=== PATIENT | male | born 1955 | race Caucasian/White ===

== ENCOUNTER 2016-08-05 14:19 | Emergency (ER) | payer OTHER ==
--- NOTE | ~2016-08-05 | EKG ---
PATIENT: SAJI SMART UNIT #: [id number] Ventricular Rate: 73 BPM Atrial Rate: 73 BPM P-R Interval: 172 ms QRS Duration: 116 ms Q-T Interval: 402 ms QTC Calculation(Bezet): 442 ms P Saco: 50 degrees Calculated R Saco: 48 degrees Calculated T Saco: 46 degrees Diagnosis Line: Normal sinus rhythm Diagnosis Line: Normal ECG Diagnosis Line: When compared with ECG of 20-MAY-2011 09:29, Diagnosis Line: No significant change was found Diagnosis Line: Confirmed by BEN MATHEW MD ([id number]) on 08/06/2016 Diagnosis Line: 10:01:59 AM INTERPRETING MD: QUINCY PASCAL
[2016-08-05 14:59] LABS: BASOPHIL# 0.1 X10e3 (0-0.3); BASOPHIL% 1.2 % (0-2.5); EOSINOPHIL% 0.4 % (0.0-7.0); HEMOGLOBIN 14.9 gm/dL (13.0-16.0); LYMPHOCYTE# 2.7 X10e3 (1.0-3.5); LYMPHOCYTE% 36.7 % (17.0-45.0); MEAN CELL VOLUME 89.4 FL (83-96); MEAN CORPUSCULAR HEMOGLOBIN 30.3 PG (28-34); MEAN CORPUSCULAR HGB CONC 33.9 g/dL (30-36); MEAN PLATELET VOLUME 7.1 FL (6.5-11.5); MONOCYTE# 0.7 X10e3 (0-1.0); NEUTROPHIL# 3.9 X10e3 (1.5-7.1); NEUTROPHIL% 52.7 % (40-75); PLATELET COUNT 257 X10e3 (140-420); RED BLOOD COUNT 4.92 X10e (3.90-5.60); RED CELL DISTRIBUTION WIDTH 13.1 % (11.0-15.5); WHITE BLOOD COUNT 7.4 X10e3 (4.0-10.5)
[2016-08-05 15:02] LABS: DIFF IND NO
[2016-08-05 15:29] LABS: ALBUMIN SERUM 3.9 g/dL (3.5-5.0); ALKALINE PHOSPHATASE 67 U/L (32-92); ALT (SGPT) 37 U/L (10-40); AST (SGOT) 29 U/L (10-42); BILIRUBIN, DIRECT 0.1 mg/dL (0.0-0.2); BILIRUBIN,INDIRECT 0.3 mg/dL (0.0-0.9); BILIRUBIN,TOTAL 0.4 mg/dL (0.2-2.0); BLOOD UREA NITROGEN 18 mg/dL (9-23); BUN/CREATININE RATIO 16.36; CALCIUM SERUM 8.9 mg/dL (8.4-10.2); CARBON DIOXIDE 20 mmol/L (22-31); CHLORIDE 108 mmol/L (100-111); CREATININE SERUM 1.1 mg/dL (0.6-1.4); GLOM FILT RATE Estimated 73.1 mL/min (>60); GLUCOSE FASTING 153 mg/dL (70-110); POTASSIUM 3.7 mmol/L (3.5-5.1); PROTEIN TOTAL SERUM 6.6 g/dL (6.0-8.3); SALICYLATE <4.0 mg/dL; SODIUM 141 mmol/L (135-145)
[2016-08-05 15:30] LABS: ACETAMINOPHEN <10 ug/mL
[2016-08-05 15:32] LABS: ALCOHOL BLOOD 323 mg/dL (0)
[2016-08-05 16:28] LABS: AMPHETAMINE NEG (NEG); BARBITURATES NEG (NEG); BENZODIAZEPINES NEG (NEG); COCAINE NEG (NEG); MARIJUANA NEG (NEG); OPIATES NEG (NEG); TRICYCLIC ANTIDEPRESSANTS NEG (NEG); U METHADONE NEG (NEG)
== END 2016-08-05 20:05 | disposition home or self-care (01) ==
LOC: CED 14:19
PROVIDERS: Emergency Medicine
DX: F10.129 Alcohol abuse with intoxication, unspecified (principal); I10 Essential (primary) hypertension
CPT/HCPCS: 36415; 80048; 80076; 80307; 85025; 93005; 96365; 99284; G0480; J3411; J3475

== ENCOUNTER 2016-08-05 18:00 | Inpatient (IN) | payer OTHER ==
--- NOTE | ~2016-08-05 | PN ---
Unit #: [id number] #: [id number] Patient: SAJI OROSCO [id number] [facility] [address] [place] [address] [id number] I MR#: [id number] NAME: SAJI OROSCO ROOM: P207 Age: 60 Sex: M Admission Date: 08/06/2016 : 1955 Attending Physician: Ute Gonzalez M.D. Admitting Physician: Ute Gonzalez M.D. Primary Care Physician: [facility] PROGRESS NOTES DATE OF SERVICE: 08/08/2016 SUBJECTIVE Mr. Orosco is a 60-year-old white male with alcohol dependence, who was seen today and chart was reviewed, and case was discussed with the staff who reports the patient's mood was anxious and shows very poor insight into his situation and has been constantly pushing to leave and blood pressure has been running high and he has been making excuses with that as well; however, he has not shown any agitation or aggression. MENTAL STATUS EXAMINATION Middle-aged white male who was casually dressed with fair personal hygiene, appears to be in no acute distress or discomfort. He was awake and alert with impaired attention and concentration. His mood was anxious with a congruent affect. He denies any suicidal or homicidal ideations. His insight and judgment remain slightly impaired. TREATMENT PLAN We will continue him on his current medications and treatment protocol. We will monitor his response and make further adjustments as needed. Dictated by... Dev Buckley/jonny TD: 08/08/2016 19:52 JOB #: [id number] [facility] PROGRESS NOTES Page 1 of 1 X Ute Gonzalez MD PROGRESS NOTE
--- NOTE | ~2016-08-05 | PN ---
Unit #: [id number] #: [id number] Patient: SAJI OROSCO [id number] [facility] [address] [place] [address] [id number] I MR#: [id number] NAME: SAJI OROSCO ROOM: P207 Age: 60 Sex: M Admission Date: 08/06/2016 : 1955 Attending Physician: Ute Gonzalez M.D. Admitting Physician: Ute Gonzalez M.D. Primary Care Physician: [facility] PROGRESS NOTES DATE 08/07/2016 DISCUSSION Mr. Orosco is a 60-year-old, white male who was seen today and chart was reviewed and case was discussed with the staff. He was seen to be anxious, restless, pacing the hallway getting somewhat anxious and wanting to leave and has been detoxing. Meanwhile, no agitation or aggression has been noted. MENTAL STATUS EXAM Middle-aged white male who was casually dressed with fair personal hygiene, appears to be in no acute distress or discomfort. He was awake and alert with intact orientation. His mood was anxious with congruent affect. He denies any suicidal or homicidal ideation. Also, denies any auditory or visual hallucinations. His insight and judgement remains slightly impaired. TREATMENT PLAN 1. We will continue him on his current medications and treatment protocol. We will monitor his response to the medication and make further adjustments as needed. 2. We will continue to follow up. Dictated by... Dev Buckley/landon TD: 08/09/2016 22:20 JOB #: [id number] Unit #: [id number] #: [id number] Patient: SAJI OROSCO PROGRESS NOTES Page 1 of 1 X Ute Gonzalez MD PROGRESS NOTE
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
--- NOTE | ~2016-08-05 | PA ---
Unit #: [id number] #: [id number] Patient: SAJI OROSCO [id number] [facility] [address] [place] [address] [id number] I MR#: [id number] NAME: SAJI OROSCO ROOM: P207 Age: 60 Sex: M Admission Date: 08/06/2016 : 1955 Date of Assessment: Attending Physician: Uet Gonzalez M.D. Admitting Physician: Ute Gonzalez M.D. Primary Care Physician: [facility] PSYCHIATRIC ASSESSMENT DATE OF SERVICE 08/06/2016. IDENTIFYING DATA Mr. Orosco is a 60-year-old single white male, who is a resident of [place], [place], and was brought to the hospital accompanied by one of his friend as a transfer from [facility]. CHIEF COMPLAINT "I have a long history of drinking whiskey." HISTORY OF PRESENT ILLNESS Mr. Orosco is a 60-year-old white male, who was initially taken to [facility] with a blood alcohol level of 323 and was acutely intoxicated and stated that he has a long history of drinking whisky and has been drinking 1 to 1-1/2 pints of whiskey daily for the last 3 months, and reports that he goes to work daily, but he is having some trouble functioning due to his heavy drinking, and this past week, he drank so much that his blood pressure myron and he blacked out and stated that he became scared and asked his friend to take him to the emergency room. He stated that he desired to stop drinking and is seeking treatment at this time. He reports that he is a local bulk driver at [employer] where they are aware of his alcohol use and they also want him to get the help that he needs and stated that his job may be in jeopardy as he has not been to work all week due to his constant drinking. He does report depression, anxiety, irritability, restlessness, and feelings of hopelessness, but denies any suicidal ideations, intent, or plan. SUBSTANCE ABUSE HISTORY The patient reports a long history of alcohol dependence stating that he has been drinking since he was 13 years old, though currently he has been drinking 1 to 1-1/2 pints of whiskey a day and denies any other drug abuse. PAST PSYCHIATRIC HISTORY The patient has had a history of chemical dependency treatment while in long-term, but currently he is not active in any treatment program. Review of the medical records indicate that currently he is not active in any treatment program, is not seeing a psychiatrist, and is not taking any psychotropic medications. PAST MEDICAL HISTORY Significant for hypertension. Unit #: [id number] #: [id number] Patient: SAJI OROSCO ALLERGIES No known medication allergies. PERSONAL AND SOCIAL HISTORY A 60-year-old white male, who reports that he is single, employed, and lives with his friend and has poor social support system. MENTAL STATUS EXAMINATION Middle-aged white male, who was casually dressed with fair personal hygiene, appears to be in no acute distress or discomfort. He was awake and alert on interaction with intact orientation to time, place, and person. His mood was anxious and depressed with a congruent affect. His speech was slow and restricted in content. His thought processes were disorganized with some looseness of associations. He denies any suicidal or homicidal ideations and also denies any auditory or visual hallucinations. His insight and judgment remain significantly impaired. DIAGNOSTIC IMPRESSION Psychiatric: Alcohol dependence, moderate, in acute withdrawals and alcohol-induced mood disorder. Medical: Hypertension. Stressors: Moderate psychosocial stressors. TREATMENT PLAN 1. The patient has presented with a history of alcohol dependence and mood disorder, who has been decompensating and will need inpatient hospitalization for detoxification. We will start him on alcohol detox protocol. We will closely monitor for any worsening withdrawal symptoms. 2. Supportive therapy was provided to the patient. 3. Safe, structured, and nourishing environment will be provided. ESTIMATED LENGTH OF STAY 4 to 5 days. ABILITY TO HELP SELF Limited. WILLINGNESS TO HELP SELF The patient appears to be willing to help self. STRENGTHS 1. Communicative. 2. Cooperative. PROBLEMS 1. Chronic dysphoric symptoms. 2. Chronic chemical dependency. 3. Poor social support system. DISCHARGE CRITERIA This will be contingent upon the patient's ability to go through detox without having any significant withdrawal symptoms as well as his ability to stay safe to himself, particularly after discharge from the hospital. Dictated by... Ute Gonzalez M.D. Unit #: [id number] #: [id number] Patient: BANJO REPAIRERSAJI TD: 08/07/2016 14:48 JOB #: [id number] PSYCHIATRIC ASSESSMENT Page 1 of 1 X Ute Gonzalez MD PSYCHIATRIC ASSESSMENT
--- NOTE | ~2016-08-05 | CO ---
Unit #: [id number] #: [id number] Patient: SAJI SMART [id number] [facility] [address] [place] [address] [id number] I MR#: [id number] NAME: SAJI SMART ROOM: [facility] Age: 60 Sex: M Admission Date: 08/06/2016 : 1955 Attending Physician: Ute Gonzalez M.D. Primary Care Physician: [facility] Requesting Physician: Ute Gonzalez M.D. Consultation Date: 08/06/2016 CONSULTATION REPORT HISTORY OF PRESENT ILLNESS Saji has a history of shortness of air for the past month. He is not having any chest pain or coughing. Occasionally, he has shortness of air on exertion and occasionally (1) __ relaxing, sitting down. It occurs a few times a week and last for a couple of minutes each time. He has a history of cigarette use, smoking 2 packs a day for 30 to 40 years. He quit more than 5 years ago. (2) __ chest x-ray. No other complaints. PHYSICAL EXAMINATION CARDIAC: Regular rate and rhythm. No murmur, gallop, or rub. RESPIRATORY: Clear to auscultation bilaterally. ASSESSMENT AND PLAN Shortness of air. We will obtain a chest x-ray and begin Pro-Air q. 4 hours, 2 puffs p.r.n. for shortness of breath. The patient was instructed to follow up with primary care provider. Dictated by... Tae Mao TD: 08/13/2016 10:49 JOB #: [id number] CONSULTATION REPORT Page 1 of 1 X LITA SUAREZ APRN CONSULTATION REPORT
--- NOTE | ~2016-08-05 | CR63 ---
[facility] A Service of [facility] RADIOLOGY TEXT RESULTS PATIENT: SAJI SMART LOCATION: P2S P207-1 : [birth year] UNIT #: [id number] AGE: [address]: Ute Gonzalez MD SEX: M ORDER DR: [id number] [facility] [place], [place] [address] [id number] I MR#: [id number] Acc #: [id number] NAME: SAJI SMART : 1955 SEX: M STUDY DATE/TIME: 08/07/2016 17:29 UNIT: S ROOM: [facility] STUDY DESCRIPTION: CR Chest 2 View Attending Physician: Ute Gonzalez M.D. Ordering Physician: Ute Gonzalez M.D. Primary Care Physician: [facility], [facility]. MEDICAL IMAGING REPORT This report is preliminary unless electronic signature is present EXAM PA and lateral chest INDICATIONS No shortness of breath, wheezing and pain for 3 weeks. No comparisons. FINDINGS There are calcified hilar lymph nodes. There is no acute-appearing infiltrate. Heart size normal. Degenerative changes thoracic spine. IMPRESSION No active disease Dictated by... Armando Rosario M.D. THIS IS AN ELECTRONICALLY VERIFIED REPORT Armando Rosario M.D. at 08/08/2016 8:36 AM JOEL/alan TD: 08/07/2016 23:21 JOB #: [id number] MEDICAL IMAGING REPORT Page 1 of 1 COPY
--- NOTE | ~2016-08-05 | DS ---
Unit #: [id number] #: [id number] Patient: SAJI OROSCO [id number] [facility] [address] [place] [address] [id number] I MR#: [id number] NAME: SAJI OROSCO ROOM: P207 Age: 60 Sex: M Admission Date: 08/06/2016 : 1955 Discharge Date: 08/09/2016 Attending Physician: Ute Gonzalez M.D. Primary Care Physician: [facility] DISCHARGE SUMMARY IDENTIFYING DATA Mr. Orosco is a 60-year-old single white male, who is a resident of [place], [place] and was brought to the hospital accompanied by one of his friend as a transfer from [facility]. DISCHARGE DIAGNOSES Psychiatric: Alcohol dependence, moderate and acute withdrawal; alcohol-induced mood disorder. Medical: Hypertension. Stressors: Moderate psychosocial stressors. HISTORY OF PRESENT ILLNESS Please see initial psychiatric evaluation for details. PAST PSYCHIATRIC HISTORY Please see initial psychiatric evaluation for details. PAST MEDICAL HISTORY Please see initial psychiatric evaluation for details. HOSPITAL COURSE The patient [facility] and was oriented to the hospital environment. Routine p.r.n. medications were initiated and he was started on the alcohol detox protocol. However, his blood pressure was running high, but he was trying to minimize his symptoms and was not interested in treatment, was constantly wanting to leave and asking to leave and pressuring and getting agitated about it and even the recommendations to stay here indicating that his blood pressure is high, he stated that he has history of blood pressure being high and that he is already on those medications before and that he is not going to take any more medication. He has to get out of here and was denying any suicidal ideations, intent, or plan and was not meeting criteria for involuntary psychiatric hospitalization and as such, it was decided he will be discharged home and will continue treatment on an outpatient basis. DISCHARGE MEDICATIONS Norvasc 5 mg a day for hypertension, Lopressor 50 mg b.i.d. for hypertension, and Claritin 10 mg at bedtime for allergies. DISCHARGE CONDITION Stable. PROGNOSIS Unit #: [id number] #: [id number] Patient: SAJI OROSCO Fair. Dictated by... IrfDev Archuleta/jonny TD: 08/09/2016 09:40 JOB #: [id number] DISCHARGE SUMMARY Page 1 of 1 X Ute Gonzalez MD X DISCHARGE SUMMARY
== END 2016-08-09 10:15 | disposition home or self-care (01) | DRG 897 ==
LOC: P2S 08-06 12:50
PROC: HZ2ZZZZ Detoxification Services for Substance Abuse Treatment (ICD-10-PCS; principal; 2016-08-06)
DX: F10.239 Alcohol dependence with withdrawal, unspecified (principal); F10.24 Alcohol dependence with alcohol-induced mood disorder; I10 Essential (primary) hypertension; F39 Unspecified mood [affective] disorder
CPT/HCPCS: 71020; 86592

== ENCOUNTER 2016-10-24 21:17 | Emergency (ER) | payer SELFPAY ==
[~2016-10-24] VITALS: Ht 180.3 cm; Wt 88.5 kg
--- NOTE | ~2016-10-24 | EKG ---
PATIENT: SAJI SMART UNIT #: [id number] Ventricular Rate: 117 BPM Atrial Rate: 117 BPM P-R Interval: 158 ms QRS Duration: 96 ms Q-T Interval: 338 ms QTC Calculation(Bezet): 471 ms P [place]alba: 38 degrees Calculated R [place]: 10 degrees Calculated T [place]: 57 degrees Diagnosis Line: Sinus tachycardia Diagnosis Line: Otherwise normal ECG Diagnosis Line: Diagnosis Line: Confirmed by TAHIRA SANCHEZ MD ([id number]) on Diagnosis Line: 10/26/2016 8:56:13 AM INTERPRETING MD: LAURA PASCAL
[2016-10-24 22:27] LABS: BASOPHIL% 0.6 % (0-2.5); EOSINOPHIL# 0.1 X10e3 (0-0.7); EOSINOPHIL% 1.3 % (0.0-7.0); HEMATOCRIT 46.4 % (38.0-50.0); HEMOGLOBIN 15.6 gm/dL (13.0-16.0); LYMPHOCYTE# 1.7 X10e3 (1.0-3.5); LYMPHOCYTE% 32.1 % (17.0-45.0); MEAN CELL VOLUME 92.1 FL (83-96); MEAN CORPUSCULAR HEMOGLOBIN 30.9 PG (28-34); MEAN CORPUSCULAR HGB CONC 33.6 g/dL (30-36); MEAN PLATELET VOLUME 6.9 FL (6.5-11.5); MONOCYTE# 0.4 X10e3 (0-1.0); MONOCYTE% 7.9 % (3.0-12.0); NEUTROPHIL# 3.1 X10e3 (1.5-7.1); NEUTROPHIL% 58.1 % (40-75); PLATELET COUNT 202 X10e3 (140-420); RED BLOOD COUNT 5.04 X10e (3.90-5.60); WHITE BLOOD COUNT 5.4 X10e3 (4.0-10.5)
[2016-10-24 22:31] LABS: DIFF IND NO
[2016-10-24 23:04] LABS: ALBUMIN SERUM 4.3 g/dL (3.5-5.0); BILIRUBIN, DIRECT 0.2 mg/dL (0.0-0.2); BILIRUBIN,INDIRECT 0.6 mg/dL (0.0-0.9); BILIRUBIN,TOTAL 0.8 mg/dL (0.2-2.0); CALCIUM SERUM 8.4 mg/dL (8.4-10.2); GLOM FILT RATE Estimated 81.5 mL/min (>60); POTASSIUM 3.6 mmol/L (3.5-5.1); PROTEIN TOTAL SERUM 7.6 g/dL (6.0-8.3)
== END 2016-10-25 00:36 | disposition home or self-care (01) ==
LOC: CED 21:17
PROVIDERS: Student in an Organized Health Care Education/Training Program
DX: F10.129 Alcohol abuse with intoxication, unspecified (principal); I10 Essential (primary) hypertension; F17.200 Nicotine dependence, unspecified, uncomplicated
CPT/HCPCS: 36415; 80048; 80076; 85025; 93005; 96361; 96374; 96375; 99284; C9113; G0480; J2405; J3411; J3475; J3490

== ENCOUNTER 2016-11-16 01:14 | Inpatient (IN) | payer OTHER ==
--- NOTE | ~2016-11-16 | EKG ---
PATIENT: SAJI SMART UNIT #: [id number] Ventricular Rate: 66 BPM Atrial Rate: 66 BPM P-R Interval: 162 ms QRS Duration: 94 ms Q-T Interval: 458 ms QTC Calculation(Bezet): 480 ms P Combs: 32 degrees Calculated R Combs: 2 degrees Calculated T Combs: 70 degrees Diagnosis Line: Normal sinus rhythm Diagnosis Line: Possible Inferior infarct , age undetermined Diagnosis Line: Abnormal ECG Diagnosis Line: When compared with ECG of 16-NOV-2016 04:24, Diagnosis Line: (unconfirmed) Diagnosis Line: Borderline criteria for Inferior infarct are now Diagnosis Line: Present Diagnosis Line: ST no longer elevated in Inferior leads Diagnosis Line: Confirmed by LYNN GUNDERSON MD ([id number]) on 11/16/2016 Diagnosis Line: 10:14:36 PM INTERPRETING MD: JALYN PASCAL
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
--- NOTE | ~2016-11-16 | CR72 ---
[facility] A Service of [facility] & [facility] RADIOLOGY TEXT RESULTS PATIENT: SAJI SMART LOCATION: [facility] [id number] : 56 UNIT #: [id number] AGE: [address]: Lior Fleming MD SEX: M ORDER DR: [id number] [facility] [address]. [place], [place] [address] [id number] I MR#: [id number] Acc #: [id number] NAME: SAJI SMART : 1955 SEX: M STUDY DATE/TIME: 11/16/2016 1:55 UNIT: [facility] ROOM: [facility] STUDY DESCRIPTION: CR Chest Single View Portable Attending Physician: Vineet Fleming M.D. Ordering Physician: Armin Yu M.D. Primary Care Physician: [facility] MEDICAL IMAGING REPORT This report is preliminary unless electronic signature is present EXAM Chest x-ray 11/16/2016 HISTORY 61-year-old male in the ED complaining of mid chest pain, present upon awakening tonight. TECHNIQUE AP portable chest x-ray. FINDINGS The examination is negative. Heart size and pulmonary vascularity are normal. The lungs are expanded and clear. No visible pulmonary infiltrate. IMPRESSION Negative chest. Dictated by... Rahat Rodriguez M.D. THIS IS AN ELECTRONICALLY VERIFIED REPORT Rahat Rodriguez M.D. at 11/16/2016 8:56 PM RENÉE/jaden TD: 11/16/2016 08:43 JOB #: [id number] MEDICAL IMAGING REPORT Page 1 of 1 COPY
--- NOTE | ~2016-11-16 | EKG ---
PATIENT: SAJI SMART UNIT #: [id number] Ventricular Rate: 75 BPM Atrial Rate: 75 BPM P-R Interval: 170 ms QRS Duration: 92 ms Q-T Interval: 424 ms QTC Calculation(Bezet): 473 ms P [place]: 63 degrees Calculated R [place]: 54 degrees Calculated T [place]: 15 degrees Diagnosis Line: Sinus rhythm with Premature atrial complexes Diagnosis Line: Cannot rule out Inferior infarct (cited on or Diagnosis Line: before 16-NOV-2016) Diagnosis Line: Abnormal ECG Diagnosis Line: When compared with ECG of 16-NOV-2016 12:19, Diagnosis Line: Premature atrial complexes are now Present Diagnosis Line: Nonspecific T wave abnormality now evident in Diagnosis Line: Inferior leads Diagnosis Line: Confirmed by ASHLY CANTRELL MD ([id number]) on Diagnosis Line: 11/17/2016 12:18:11 PM INTERPRETING MD: ISIS
--- NOTE | ~2016-11-16 | EKG ---
PATIENT: SAJI SMART UNIT #: [id number] Ventricular Rate: 77 BPM Atrial Rate: 77 BPM P-R Interval: 168 ms QRS Duration: 96 ms Q-T Interval: 408 ms QTC Calculation(Bezet): 461 ms P [place]: 21 degrees Calculated R [place]: 14 degrees Calculated T [place]: 61 degrees Diagnosis Line: Normal sinus rhythm Diagnosis Line: Nonspecific ST elevation Diagnosis Line: Borderline ECG Diagnosis Line: When compared with ECG of 24-OCT-2016 21:46, Diagnosis Line: Vent. rate has decreased BY 40 BPM Diagnosis Line: Confirmed by LYNN GUNDERSON MD ([id number]) on 11/16/2016 Diagnosis Line: 10:07:46 PM INTERPRETING MD: JALYN PASCAL
--- NOTE | ~2016-11-16 | EKG ---
PATIENT: SAJI SMART UNIT #: [id number] Ventricular Rate: 55 BPM Atrial Rate: 55 BPM P-R Interval: 144 ms QRS Duration: 106 ms Q-T Interval: 472 ms QTC Calculation(Bezet): 451 ms P [place]: 14 degrees Calculated R [place]: 35 degrees Calculated T Steen: 70 degrees Diagnosis Line: Sinus bradycardia Diagnosis Line: Nonspecific ST abnormality Cannot rule out Diagnosis Line: Inferior infarct Diagnosis Line: Abnormal ECG Diagnosis Line: When compared with ECG of 16-NOV-2016 01:21, Diagnosis Line: (unconfirmed) Diagnosis Line: No significant change was found Diagnosis Line: Confirmed by LYNN GUNDERSON MD ([id number]) on 11/16/2016 Diagnosis Line: 10:08:47 PM INTERPRETING MD: JALYN PASCAL
--- NOTE | ~2016-11-16 | DS ---
Unit #: [id number] #: [id number] Patient: SAJI SMART [id number] [address] [place], [place] [address] [id number] I MR#: [id number] NAME: SAJI SMART ROOM: 555 Age: 61 Sex: M Admission Date: 11/16/2016 : 1955 Discharge Date: 11/18/2016 Attending Physician: Vineet Fleming M.D. Primary Care Physician: [facility]. DISCHARGE SUMMARY DISCHARGE DIAGNOSES 1. Acute inferior myocardial infarction, status post cardiac catheterization performed by Dr. Lau which revealed severe three-vessel coronary artery disease, left ventricular ejection fraction of 45%, status post percutaneous coronary intervention and stent to the mid RCA, status post percutaneous coronary intervention and stent to the first marginal branch of the circumflex. Patient also had 99% stenosis in the LAD distal to the second diagonal branch and 30-40% stenosis was also seen in the mid section of the LAD, but the distal section was normal. Dr. Lau will recommend if necessary at a later date intervention. 2. Chronic obstructive pulmonary disease with nicotine abuse. 3. Hypertension. 4. Hyperlipidemia. 5. (1) . DISCHARGE MEDICATIONS 1. Atorvastatin 80 mg p.o. daily at bedtime. 2. Metoprolol 50 mg p.o. twice daily. 3. Hydrochlorothiazide 25 mg 1 tablet daily. 4. Lisinopril 20 mg p.o. daily at bedtime. 5. Aspirin 81 mg daily. 6. Brilinta 90 mg p.o. twice daily. 7. Imdur-ER 30 mg p.o. daily. HOSPITAL COURSE This is a 61-year-old white male who presented to the emergency room after he was awakened with worsening substernal pressure radiating up to his shoulders. He got diaphoretic, short of breath, and very anxious and apprehensive. He had been having similar symptoms but not as severe that would ease off with rest over the past week. In the emergency room, patient's blood pressure was found to be 180/100 and his heart rate was 74. Patient's EKG did show some sinus bradycardia. He had some ST elevation of 1 mm in the inferior leads only. Other than that, he had a prolonged QT. Later after arrival, he did have a 6.6 second ventricular standstill that was before he went to the lab aide. Patient did have a dose of atropine. Patient had been started on a heparin drip in addition to aspirin, nitrate, and statin. Dr. Lau took the patient to the lab aide loss prevention consultant, and he was found to severe three-vessel coronary artery disease. As mentioned in the report, he performed PCI and stent to the mid RCA and the first marginal branch of the circumflex. He did find additional blockage in the mid LAD Unit #: [id number] #: [id number] Patient: SAJI SMART that was not dilated. He wants to treat him with aggressive medical management. Patient tolerated the procedure well, and he has been chest pain free since the procedure. His EKG stabilized and ST elevation resolved. His latest EKG today shows normal sinus rhythm. There are some nondiagnostic Q waves in the inferior leads and inferolateral leads. Patient will be discharged home on the appropriate cardiac medications. He has been initiated on an JOCELYNN inhibitor for his cardiomyopathy with EF of 45%. The patient has been ambulating in the allred without any chest pain, palpitations, or dizziness. Patient will be discharged home today in stable condition. PHYSICAL EXAMINATION AT TIME OF DISCHARGE VITAL SIGNS: Blood pressure is 149/72, heart rate 68, respirations 18, temperature 98.8, and O2 saturation is 100% on room air. HEART: S1 and S2, regular rate and rhythm. LUNGS: Diminished, otherwise clear. ABDOMEN: Soft and nontender. EXTREMITIES: Right wrist cardiac cath site is without oozing, hematoma, or thrill. Pedal pulses are palpable. No pedal edema. DIAGNOSTIC STUDIES LATEST LABORATORY: Glucose 105, BUN 14, creatinine 1.1, eGFR 72.6, sodium 139, potassium 5, chloride 104, CO2 is 26, and calcium is 9.5. Fasting lipid profile: Cholesterol is 175, triglycerides 136, LDL 122, and HDL 26. TSH is 2.64. Patient's troponin did peak at 4.78 on November 17. Latest CK total is 152, MB 6.5, and percentage of MB 4.3 and 4.3. WBC 6.9, hemoglobin 13.3, hematocrit 39.5, and platelets 241,000. CARDIOLOGY: EKG today shows normal sinus rhythm with occasional premature atrial complex and nondiagnostic Q waves. PLANS/INSTRUCTIONS 1. Patient will be discharged home today and instructed to follow up with Dr. Lau on January 01 at 2:45 p.m. 2. Patient has been instructed to follow up with his primary care physician. He goes to the [facility]. 3. Beatriz Almonte and [facility] have helped the patient fill his medications there at low cost. Patient was assisted by the marriage and family social worker and wound care technician to get on [employer] health insurance. I talked to Beatriz Almonte, pharmacist photovoltaic fabrication technician, and she assisted him getting his prescriptions filled down in [facility]. He got the Brilinta with zero cost. Also, most of his medications were zero cost. 4. Encourage the patient on compliance. 5. Smoking cessation information discussed with the patient and information provided. 6. Post-cardiac cath instructions provided to patient. 7. Dr. Lau will see the patient as mentioned in early December. But in the meantime, Dr. Lau said if he was stable, the patient could return back to work on December 11. A release note was provided to the patient. 8. Patient is on an JOCELYNN inhibitor for his cardiomyopathy. 9. Discussed with the patient the importance of continuing on his dual antiplatelet therapy and prevention of stent closure, rethrombosis, myocardial infarction, and even . Patient verbalized understanding. Discussed with patient risk factor modification, Unit #: [id number] #: [id number] Patient: SAJI SMART healthy-heart lifestyle changes, and diet for his hypertension and his coronary artery disease and hyperlipidemia. 1. Dictated by... Ian SantaPStuartRStuartNStuart for Dev Murry/aristides TD: 11/18/2016 16:11 JOB #: [id number] DISCHARGE SUMMARY Page 1 of 1 X Amna Navas APRN X DISCHARGE SUMMARY
[2016-11-16 01:59] LABS: BASOPHIL# 0.1 X10e3 (0-0.3); BASOPHIL% 1.1 % (0-2.5); EOSINOPHIL# 0.4 X10e3 (0-0.7); EOSINOPHIL% 5.5 % (0.0-7.0); HEMATOCRIT 43.8 % (38.0-50.0); HEMOGLOBIN 15.2 gm/dL (13.0-16.0); LYMPHOCYTE# 2.5 X10e3 (1.0-3.5); LYMPHOCYTE% 31.7 % (17.0-45.0); MEAN CORPUSCULAR HEMOGLOBIN 31.5 PG (28-34); MEAN CORPUSCULAR HGB CONC 34.6 g/dL (30-36); MEAN PLATELET VOLUME 8.4 FL (6.5-11.5); MONOCYTE# 0.6 X10e3 (0-1.0); MONOCYTE% 8.3 % (3.0-12.0); NEUTROPHIL# 4.1 X10e3 (1.5-7.1); NEUTROPHIL% 53.4 % (40-75); PLATELET COUNT 299 X10e3 (140-420); RED BLOOD COUNT 4.82 X10e (3.90-5.60); RED CELL DISTRIBUTION WIDTH 13.1 % (11.0-15.5); WHITE BLOOD COUNT 7.8 X10e3 (4.0-10.5)
[2016-11-16 02:02] LABS: POC - CKMB 18.4 ng/mL (0.0-7.9); POC - TROPONIN 0.87 ng/mL (<=0.05)
[2016-11-16 02:06] LABS: DIFF IND NO
[2016-11-16 02:21] LABS: ALBUMIN SERUM 3.8 g/dL (3.5-5.0); BILIRUBIN, DIRECT 0.1 mg/dL (0.0-0.2); BILIRUBIN,INDIRECT 0.3 mg/dL (0.0-0.9); BILIRUBIN,TOTAL 0.4 mg/dL (0.2-2.0); BUN/CREATININE RATIO 12.3; CALCIUM SERUM 9.2 mg/dL (8.4-10.2); CREATININE SERUM 1.3 mg/dL (0.6-1.4); GLOM FILT RATE Estimated 59.3 mL/min (>60); POTASSIUM 4.2 mmol/L (3.5-5.1); PROTEIN TOTAL SERUM 7.1 g/dL (6.0-8.3)
[2016-11-16 03:23] LABS: POC - CKMB 9.6 ng/mL (0.0-7.9); POC - TROPONIN 0.5 ng/mL (<=0.05)
[2016-11-16] MEDS ORDERED: LOPRESSOR PO (04:04)
[2016-11-16] MEDS ORDERED: TENORMIN25 M1 PO (04:05)
[2016-11-16 07:23] LABS: BASOPHIL# 0.1 X10e3 (0-0.3); EOSINOPHIL# 0.5 X10e3 (0-0.7); EOSINOPHIL% 7.4 % (0.0-7.0); HEMATOCRIT 41.3 % (38.0-50.0); HEMOGLOBIN 14.2 gm/dL (13.0-16.0); LYMPHOCYTE# 2.1 X10e3 (1.0-3.5); LYMPHOCYTE% 31.5 % (17.0-45.0); MEAN CELL VOLUME 90.8 FL (83-96); MEAN CORPUSCULAR HEMOGLOBIN 31.1 PG (28-34); MEAN CORPUSCULAR HGB CONC 34.3 g/dL (30-36); MEAN PLATELET VOLUME 8.3 FL (6.5-11.5); MONOCYTE# 0.5 X10e3 (0-1.0); NEUTROPHIL# 3.4 X10e3 (1.5-7.1); NEUTROPHIL% 52.1 % (40-75); PLATELET COUNT 288 X10e3 (140-420); RED BLOOD COUNT 4.55 X10e (3.90-5.60); WHITE BLOOD COUNT 6.6 X10e3 (4.0-10.5)
[2016-11-16 07:24] LABS: DIFF IND NO
[2016-11-16 07:38] LABS: PARTIAL THROMBOPLASTIN TIME 32.2 SECONDS (23.5-31.3)
[2016-11-16 07:57] LABS: BUN/CREATININE RATIO 11.66; CREATININE SERUM 1.2 mg/dL (0.6-1.4); GLOM FILT RATE Estimated 65.4 mL/min (>60); MAGNESIUM 2.2 mg/dL (1.6-3.0); POTASSIUM 4.3 mmol/L (3.5-5.1)
[2016-11-16 09:38] LABS: %MB 12.3 % (0.0-4.0); MB 69.6 ng/ml
[2016-11-16 10:10] LABS: CHOLESTEROL 203 mg/dL (0-200); HDL CHOLESTEROL 32 mg/dL (29-75); LDL/HDL RATIO 5 RATIO (0-4); TRIGLYCERIDES 58 mg/dL (10-160)
[2016-11-16 10:18] LABS: LDL CHOLESTEROL 159 mg/dL (-130)
[2016-11-16 12:22] LABS: %MB 14.7 % (0.0-4.0); MB 100.8 ng/ml
[2016-11-16 16:31] LABS: %MB 15.1 % (0.0-4.0); MB 100.6 ng/ml
[2016-11-16 20:02] LABS: ANGIO %MB 13.6 % (0.0-4.0); ANGIO MB 83.5 ng/ml
[2016-11-17 03:39] LABS: HEMATOCRIT 39.5 % (38.0-50.0); HEMOGLOBIN 13.3 gm/dL (13.0-16.0); MEAN CELL VOLUME 90.8 FL (83-96); MEAN CORPUSCULAR HEMOGLOBIN 30.6 PG (28-34); MEAN CORPUSCULAR HGB CONC 33.7 g/dL (30-36); MEAN PLATELET VOLUME 8.3 FL (6.5-11.5); RED BLOOD COUNT 4.35 X10e (3.90-5.60); RED CELL DISTRIBUTION WIDTH 13.3 % (11.0-15.5); WHITE BLOOD COUNT 6.9 X10e3 (4.0-10.5)
[2016-11-17 03:58] LABS: BUN/CREATININE RATIO 11.66; CALCIUM SERUM 8.5 mg/dL (8.4-10.2); CREATININE SERUM 1.2 mg/dL (0.6-1.4); GLOM FILT RATE Estimated 65.4 mL/min (>60)
[2016-11-17 04:17] LABS: ANGIO %MB 11.9 % (0.0-4.0); ANGIO MB 44.4 ng/ml
[2016-11-18] MEDS ORDERED: BRILINTA90 MG PO (10:34)
[2016-11-18] MEDS ORDERED: IMDUR-ER30 M1 PO (10:34)
[2016-11-18] MEDS ORDERED: CHEWABLE ASPIRI81 MG PO (10:37)
[2016-11-18] MEDS ORDERED: ZESTRIL30 MG PO (10:38)
[2016-11-18] MEDS ORDERED: HYDROCHLOROTHIA25 MG PO (10:39)
[2016-11-18] MEDS ORDERED: ATORVASTATIN CA80 MG PO (10:40)
[2016-11-18 11:38] LABS: BUN/CREATININE RATIO 12.72; CALCIUM SERUM 9.5 mg/dL (8.4-10.2); CREATININE SERUM 1.1 mg/dL (0.6-1.4); GLOM FILT RATE Estimated 72.6 mL/min (>60)
[2016-11-18 11:57] LABS: %MB 4.3 % (0.0-4.0); MB 6.5 ng/ml
== END 2016-11-18 18:12 | disposition home or self-care (01) | DRG 247 ==
LOC: CED 01:14 → CEDOF 02:37 → CED 02:48 → C5B 02:48 → CEDOF 02:48 → C5B 03:21
PROVIDERS: Emergency Medicine; Internal Medicine Cardiovascular Disease
PROC: 027135Z Dilation of Coronary Artery, Two Arteries with Two Drug-eluting Intraluminal Devices, Percutaneous Approach (ICD-10-PCS; principal; 2016-11-16)
PROC: 4A023N7 Measurement of Cardiac Sampling and Pressure, Left Heart, Percutaneous Approach (ICD-10-PCS; 2016-11-16)
PROC: B211YZZ Fluoroscopy of Multiple Coronary Arteries using Other Contrast (ICD-10-PCS; 2016-11-16)
PROC: B215YZZ Fluoroscopy of Left Heart using Other Contrast (ICD-10-PCS; 2016-11-16)
DX: I21.4 Non-ST elevation (NSTEMI) myocardial infarction (principal); I10 Essential (primary) hypertension; Z91.19 Patient's noncompliance with other medical treatment and regimen; F10.10 Alcohol abuse, uncomplicated; R00.1 Bradycardia, unspecified; Z87.891 Personal history of nicotine dependence; F17.220 Nicotine dependence, chewing tobacco, uncomplicated; J44.9 Chronic obstructive pulmonary disease, unspecified; E78.5 Hyperlipidemia, unspecified; I25.110 Atherosclerotic heart disease of native coronary artery with unstable angina pectoris
CPT/HCPCS: 36415; 71010; 80048; 80061; 80076; 82550; 82553; 82947; 83690; 83735; 84443; 84484; 85025; 85027; 85347; 85610; 85730; 93005; 99152; 99153; 99285; C1725; C1769; C1874; C1887; C1894; J0461; J1644; J2250; J2270; J3010